=== PATIENT | male | born 1940 | race Caucasian/White ===

== ENCOUNTER → 2017-04-01 | Outpatient (CLI) | payer MEDICARE ==
[~2017-04-01] MED LIST: ACET-1757 PO; AMIO400T4 PO; AMLO10TA4 PO; AMLO5TAB2 PO; ASPI-515 PO; ATOR40TA PO; ATOR80TA75 PO; CARV6.2512 PO; CEFD300C37 PO; FURO-93 PO; FURO20TA3 PO; LISI-170 PO; LISI5TAB7 PO; LORA10TA3 PO; LOSA50TA6 PO; METO25TA35 PO; PHEN100C PO; POTA10TA11 PO; POTA20TA14 PO; SERT50TA5 PO; TAMS0.4C2 PO; dilantin PO
== END | disposition home or self-care (01) ==
LOC: CVU 12:25
PROVIDERS: ATTEND Internal Medicine Cardiovascular Disease
DX: I08.3 Combined rheumatic disorders of mitral, aortic and tricuspid valves (principal); I25.2 Old myocardial infarction; I37.1 Nonrheumatic pulmonary valve insufficiency; I51.7 Cardiomegaly; I67.1 Cerebral aneurysm, nonruptured; I10 Essential (primary) hypertension; I42.9 Cardiomyopathy, unspecified; Z95.5 Presence of coronary angioplasty implant and graft
CPT/HCPCS: 93306

== ENCOUNTER 2018-07-02 11:25 | Inpatient (IN) | payer MEDICARE ==
[~2018-07-02] VITALS: Ht 180.3 cm; Wt 107.2 kg
[~2018-07-02 11:25] MED LIST changes: -AMIO400T4 PO; +AMIO400T5 PO; +ATOR-2 PO; -ATOR80TA75 PO
[2018-07-02] MEDS ORDERED: SODIUM CHLORIDE FLUSH 10ML SYR IVF ONE (11:30)
[2018-07-02] MEDS ORDERED: ASPI-515 PO (11:38)
[2018-07-02] MEDS ORDERED: RIVA20TA PO (11:38)
[2018-07-02] MEDS ORDERED: SPIR25TA5 PO (11:38)
[2018-07-02] MEDS ORDERED: SACU1TAB PO (11:38)
[2018-07-02 12:08] LABS: BASOPHILS # (AUTO) 0.01 x10^3/uL (0-0.1); BASOPHILS % (AUTO) 0 % (0-1); EOSINOPHILS # (AUTO) 0.05 x10^3/uL (0-0.4); EOSINOPHILS % (AUTO) 1 % (1-7); LYMPHOCYTES # (AUTO) 0.48 x10^3/uL (1-3.4); LYMPHOCYTES % (AUTO) 6 % (22-44); MD NO; MEAN CORPUSCULAR HEMOGLOBIN 30.4 pg (27.5-34.5); MEAN CORPUSCULAR VOLUME 92.1 fL (81-97); MEAN PLATELET VOLUME 8.4 fL (7.4-10.4); MONOCYTES # (AUTO) 0.65 x10^3/uL (0.2-0.8); MONOCYTES % (AUTO) 8 % (2-9); NEUTROPHILS # (AUTO) 6.78 x10^3/uL (1.8-6.8); NEUTROPHILS % (AUTO) 85 % (42-75); PLATELET COUNT 158 x10^3/uL (130-400); RED BLOOD COUNT 3.94 x10^6/uL (4.38-5.82); RED CELL DISTRIBUTION WIDTH 16.5 % (9.4-14.8)
[2018-07-02 12:19] LABS: ALANINE AMINOTRANSFERASE 21 U/L (12-78); ALBUMIN 3.3 g/dL (3.4-5.0); ANION GAP 8 mmol/L (5-15); CALCIUM 8.6 mg/dL (8.5-10.1); CHLORIDE 106 mmol/L (98-107); CREATININE 2.08 mg/dL (0.7-1.3)
[2018-07-02 12:23] LABS: ALKALINE PHOSPHATASE 83 U/L (45-117); BILIRUBIN,TOTAL 1.1 mg/dL (0.2-1.0); TOTAL PROTEIN 6.9 g/dL (6.4-8.2); TROPONIN I < 0.015 ng/mL (0.000-0.045)
[2018-07-02 14:19] VITALS: BP 114/75
[2018-07-02] MEDS ORDERED: ONDANSETRON ODT 4 MG PO PRN (14:30)
[2018-07-02] MEDS ORDERED: HEPARIN 5,000 UNITS/ML, 1ML SQ SCH (14:30)
[2018-07-02] MEDS ORDERED: POLYETHYLENE GLYCOL 17 GM PACKET PO PRN (14:30)
[2018-07-02] MEDS ORDERED: FUROSEMIDE 40 MG/4 ML IV ONE (14:30)
[2018-07-02] MEDS ORDERED: GUAIFENESIN/DM 200-20MG, 10ML UDC PO PRN (14:30)
[2018-07-02] MEDS ORDERED: ONDANSETRON 2MG/ML, 2ML IVPush PRN (14:30)
[2018-07-02] MEDS ORDERED: LABETALOL 5MG/ML, 20ML IVPush PRN (14:30)
[2018-07-02 15:12] LABS: FREE T4 (FREE THYROXINE) 1.29 ng/dL (0.76-1.46)
[2018-07-02] MEDS: ALBUTEROL SULFATE 2.5 MG/3 ML NPPB PRN (16:45)
[2018-07-02 18:30] LABS: TROPONIN I < 0.015 ng/mL (0.000-0.045)
[2018-07-02 18:36] LABS: CREATININE,URINE RANDOM 26.4 mg/dL
[2018-07-02 19:47] VITALS: BP_SYST 85; BP_SYST 93; BP_DIAS 53; BP_DIAS 54
[2018-07-02] MEDS: METOPROLOL TARTRATE 25 MG TABLET PO SCH (21:25)
[2018-07-02] MEDS: FAMOTIDINE 20 MG/2 ML IVPush SCH (21:25)
[2018-07-02 21:26] VITALS: BP 105/70
[2018-07-02] MEDS: ATORVASTATIN 80 MG TABLET PO SCH (21:26)
[2018-07-02] MEDS: SPIRONOLACTONE 25 MG TABLET PO SCH (21:26)
[2018-07-03 00:01] LABS: TROPONIN I < 0.015 ng/mL (0.000-0.045)
[2018-07-03 00:56] VITALS: BP 119/72
[2018-07-03 05:42] LABS: ALBUMIN 2.9 g/dL (3.4-5.0); ANION GAP 5 mmol/L (5-15); CALCIUM 8.8 mg/dL (8.5-10.1); CHLORIDE 106 mmol/L (98-107)
[2018-07-03 05:45] LABS: BASOPHILS # (AUTO) 0.01 x10^3/uL (0-0.1); BASOPHILS % (AUTO) 0 % (0-1); EOSINOPHILS % (AUTO) 0 % (1-7); LYMPHOCYTES % (AUTO) 8 % (22-44); MD NO; MEAN CORPUSCULAR HEMOGLOBIN 30.1 pg (27.5-34.5); MEAN CORPUSCULAR VOLUME 91.5 fL (81-97); MEAN PLATELET VOLUME 8.3 fL (7.4-10.4); MONOCYTES # (AUTO) 0.23 x10^3/uL (0.2-0.8); MONOCYTES % (AUTO) 5 % (2-9); NEUTROPHILS # (AUTO) 4.47 x10^3/uL (1.8-6.8); NEUTROPHILS % (AUTO) 88 % (42-75); PLATELET COUNT 168 x10^3/uL (130-400); RED BLOOD COUNT 3.86 x10^6/uL (4.38-5.82); RED CELL DISTRIBUTION WIDTH 16.2 % (9.4-14.8)
[2018-07-03 05:52] LABS: ALANINE AMINOTRANSFERASE 19 U/L (12-78); ALKALINE PHOSPHATASE 76 U/L (45-117); BILIRUBIN,TOTAL 1.3 mg/dL (0.2-1.0); CREATININE 1.95 mg/dL (0.7-1.3); THYROID STIMULATING HORMONE 0.594 mIU/L (0.358-3.740); TOTAL PROTEIN 6.8 g/dL (6.4-8.2)
[2018-07-03 07:08] VITALS: BP 99/65
[2018-07-03] MEDS ORDERED: FUROSEMIDE 40 MG/4 ML IV SCH (08:30)
[2018-07-03] MEDS ORDERED: RIVAROXABAN 20 MG TABLET PO SCH (09:00)
[2018-07-03] MEDS: TAMSULOSIN 0.4 MG CAP.ER.24H PO SCH (09:46)
[2018-07-03] MEDS: SERTRALINE 50MG TABLET PO SCH (09:46)
[2018-07-03] MEDS: AMIODARONE 200 MG TABLET PO SCH (09:46)
[2018-07-03] MEDS: SENNA/DOCUSATE TABLET PO SCH (09:46)
[2018-07-03] MEDS: FAMOTIDINE 20 MG/2 ML IVPush SCH ×2 (09:46→20:43)
[2018-07-03] MEDS: METOPROLOL TARTRATE 25 MG TABLET PO SCH ×2 (09:46→20:42)
[2018-07-03] MEDS: SPIRONOLACTONE 25 MG TABLET PO SCH ×2 (09:47→20:42)
[2018-07-03 14:56] VITALS: BP 89/68
[2018-07-03 19:12] VITALS: BP 125/75
[2018-07-03] MEDS: ATORVASTATIN 80 MG TABLET PO SCH (20:42)
[2018-07-04] MEDS: ALBUTEROL SULFATE 2.5 MG/3 ML NPPB PRN ×3 (02:36→20:44)
[2018-07-04 02:55] VITALS: BP 109/70
[2018-07-04 05:35] LABS: BASOPHILS # (AUTO) 0.01 x10^3/uL (0-0.1); BASOPHILS % (AUTO) 0 % (0-1); EOSINOPHILS # (AUTO) 0.01 x10^3/uL (0-0.4); EOSINOPHILS % (AUTO) 0 % (1-7); LYMPHOCYTES # (AUTO) 0.77 x10^3/uL (1-3.4); LYMPHOCYTES % (AUTO) 8 % (22-44); MD NO; MEAN CORPUSCULAR HEMOGLOBIN 30.4 pg (27.5-34.5); MEAN CORPUSCULAR HGB CONC 33.1 g/dL (33.2-36.2); MEAN CORPUSCULAR VOLUME 91.9 fL (81-97); MEAN PLATELET VOLUME 8.8 fL (7.4-10.4); MONOCYTES # (AUTO) 1.06 x10^3/uL (0.2-0.8); MONOCYTES % (AUTO) 11 % (2-9); NEUTROPHILS # (AUTO) 8.04 x10^3/uL (1.8-6.8); NEUTROPHILS % (AUTO) 81 % (42-75); PLATELET COUNT 183 x10^3/uL (130-400); RED CELL DISTRIBUTION WIDTH 17.1 % (9.4-14.8)
[2018-07-04 05:40] LABS: ANION GAP 4 mmol/L (5-15); CALCIUM 8.8 mg/dL (8.5-10.1); CHLORIDE 106 mmol/L (98-107)
[2018-07-04 05:45] LABS: CREATININE 2.09 mg/dL (0.7-1.3)
[2018-07-04 06:53] VITALS: BP 99/58
[2018-07-04] MEDS: AMIODARONE 200 MG TABLET PO SCH (08:46)
[2018-07-04] MEDS: TAMSULOSIN 0.4 MG CAP.ER.24H PO SCH (08:46)
[2018-07-04] MEDS: RIVAROXABAN 15 MG TABLET PO SCH (08:47)
[2018-07-04] MEDS: SENNA/DOCUSATE TABLET PO SCH (08:47)
[2018-07-04] MEDS: METOPROLOL TARTRATE 25 MG TABLET PO SCH ×2 (08:47→20:30)
[2018-07-04] MEDS: SERTRALINE 50MG TABLET PO SCH (08:47)
[2018-07-04] MEDS: SPIRONOLACTONE 25 MG TABLET PO SCH ×2 (08:49→20:28)
[2018-07-04] MEDS ORDERED: FUROSEMIDE 40 MG/4 ML IV ONE (09:00)
[2018-07-04] MEDS ORDERED: FUROSEMIDE 20 MG/2 ML IV ONE (11:27)
[2018-07-04 13:35] VITALS: BP 105/69
[2018-07-04] MEDS ORDERED: FUROSEMIDE 20 MG/2 ML IV SCH (17:00)
[2018-07-04 18:55] VITALS: BP 101/65
[2018-07-04] MEDS: FAMOTIDINE 20 MG/2 ML IVPush SCH (20:28)
[2018-07-04] MEDS: ATORVASTATIN 80 MG TABLET PO SCH (20:29)
[2018-07-05 02:29] VITALS: BP 108/65
[2018-07-05 05:44] LABS: BASOPHILS # (AUTO) 0.01 x10^3/uL (0-0.1); BASOPHILS % (AUTO) 0 % (0-1); EOSINOPHILS % (AUTO) 0 % (1-7); LYMPHOCYTES # (AUTO) 0.73 x10^3/uL (1-3.4); LYMPHOCYTES % (AUTO) 9 % (22-44); MD NO; MEAN CORPUSCULAR HGB CONC 32.8 g/dL (33.2-36.2); MEAN CORPUSCULAR VOLUME 91.4 fL (81-97); MEAN PLATELET VOLUME 8.7 fL (7.4-10.4); MONOCYTES # (AUTO) 0.63 x10^3/uL (0.2-0.8); MONOCYTES % (AUTO) 8 % (2-9); NEUTROPHILS # (AUTO) 6.58 x10^3/uL (1.8-6.8); NEUTROPHILS % (AUTO) 83 % (42-75); PLATELET COUNT 188 x10^3/uL (130-400); RED BLOOD COUNT 3.73 x10^6/uL (4.38-5.82); RED CELL DISTRIBUTION WIDTH 16.5 % (9.4-14.8)
[2018-07-05 05:47] LABS: ANION GAP 4 mmol/L (5-15); CALCIUM 8.4 mg/dL (8.5-10.1); CHLORIDE 105 mmol/L (98-107); CREATININE 1.97 mg/dL (0.7-1.3)
[2018-07-05 07:03] VITALS: BP 117/72
[2018-07-05] MEDS: ALBUTEROL SULFATE 2.5 MG/3 ML NPPB SCH ×4 (07:10→19:42)
[2018-07-05] MEDS: FUROSEMIDE 40 MG/4 ML IV SCH ×2 (08:41→17:12)
[2018-07-05] MEDS: SENNA/DOCUSATE TABLET PO SCH ×2 (08:41→08:47)
[2018-07-05] MEDS: METOPROLOL TARTRATE 25 MG TABLET PO SCH ×2 (08:42→22:17)
[2018-07-05] MEDS: RIVAROXABAN 15 MG TABLET PO SCH (08:42)
[2018-07-05] MEDS: SERTRALINE 50MG TABLET PO SCH (08:42)
[2018-07-05] MEDS: TAMSULOSIN 0.4 MG CAP.ER.24H PO SCH (08:42)
[2018-07-05] MEDS: AMIODARONE 200 MG TABLET PO SCH (08:42)
[2018-07-05] MEDS: SPIRONOLACTONE 25 MG TABLET PO SCH ×2 (08:42→22:17)
[2018-07-05 12:40] VITALS: BP 108/68
[2018-07-05] MEDS ORDERED: FUROSEMIDE 20 MG/2 ML IV SCH (17:00)
[2018-07-05 19:26] VITALS: BP 103/67
[2018-07-05] MEDS: ATORVASTATIN 80 MG TABLET PO SCH (22:17)
[2018-07-05] MEDS: FAMOTIDINE 20 MG/2 ML IVPush SCH (22:17)
[2018-07-06 03:24] VITALS: BP 115/73
[2018-07-06 05:48] LABS: BASOPHILS % (AUTO) 0 % (0-1); EOSINOPHILS # (AUTO) 0.01 x10^3/uL (0-0.4); EOSINOPHILS % (AUTO) 0 % (1-7); LYMPHOCYTES # (AUTO) 0.75 x10^3/uL (1-3.4); LYMPHOCYTES % (AUTO) 9 % (22-44); MD NO; MEAN CORPUSCULAR HEMOGLOBIN 30.4 pg (27.5-34.5); MEAN CORPUSCULAR HGB CONC 33.1 g/dL (33.2-36.2); MEAN CORPUSCULAR VOLUME 91.9 fL (81-97); MEAN PLATELET VOLUME 8.6 fL (7.4-10.4); MONOCYTES # (AUTO) 0.77 x10^3/uL (0.2-0.8); MONOCYTES % (AUTO) 9 % (2-9); NEUTROPHILS # (AUTO) 6.86 x10^3/uL (1.8-6.8); NEUTROPHILS % (AUTO) 82 % (42-75); PLATELET COUNT 190 x10^3/uL (130-400); RED BLOOD COUNT 3.76 x10^6/uL (4.38-5.82); RED CELL DISTRIBUTION WIDTH 16.1 % (9.4-14.8)
[2018-07-06 05:55] LABS: ALBUMIN 2.9 g/dL (3.4-5.0); ANION GAP 6 mmol/L (5-15); CALCIUM 8.5 mg/dL (8.5-10.1); CHLORIDE 105 mmol/L (98-107)
[2018-07-06 05:57] LABS: CREATININE 1.87 mg/dL (0.7-1.3)
[2018-07-06] MEDS: ALBUTEROL SULFATE 2.5 MG/3 ML NPPB SCH ×4 (06:30→19:09)
[2018-07-06 07:21] VITALS: BP 113/75
[2018-07-06] MEDS: FUROSEMIDE 40 MG/4 ML IV SCH ×3 (09:14→21:04)
[2018-07-06] MEDS: SERTRALINE 50MG TABLET PO SCH (09:16)
[2018-07-06] MEDS: SENNA/DOCUSATE TABLET PO SCH (09:16)
[2018-07-06] MEDS: SPIRONOLACTONE 25 MG TABLET PO SCH ×2 (09:16→21:03)
[2018-07-06] MEDS: AMIODARONE 200 MG TABLET PO SCH (09:16)
[2018-07-06] MEDS: RIVAROXABAN 15 MG TABLET PO SCH (09:17)
[2018-07-06] MEDS: METOPROLOL TARTRATE 25 MG TABLET PO SCH (09:17)
[2018-07-06] MEDS: TAMSULOSIN 0.4 MG CAP.ER.24H PO SCH (09:28)
[2018-07-06 20:43] VITALS: BP 103/70
[2018-07-06] MEDS: ATORVASTATIN 80 MG TABLET PO SCH (21:03)
[2018-07-07 01:21] VITALS: BP 118/79
[2018-07-07] MEDS: FAMOTIDINE 20 MG/2 ML IVPush SCH ×2 (01:28→21:09)
[2018-07-07] MEDS: METOPROLOL TARTRATE 25 MG TABLET PO SCH ×2 (01:28→12:39)
[2018-07-07 05:38] LABS: ALBUMIN 2.9 g/dL (3.4-5.0); ANION GAP 8 mmol/L (5-15); CALCIUM 8.3 mg/dL (8.5-10.1); CHLORIDE 103 mmol/L (98-107)
[2018-07-07] MEDS: ALBUTEROL SULFATE 2.5 MG/3 ML NPPB SCH ×4 (07:00→19:40)
[2018-07-07] MEDS: TAMSULOSIN 0.4 MG CAP.ER.24H PO SCH (08:42)
[2018-07-07] MEDS: SENNA/DOCUSATE TABLET PO SCH ×2 (08:42→08:45)
[2018-07-07] MEDS: RIVAROXABAN 15 MG TABLET PO SCH (08:42)
[2018-07-07] MEDS: SERTRALINE 50MG TABLET PO SCH (08:42)
[2018-07-07] MEDS: SPIRONOLACTONE 25 MG TABLET PO SCH ×2 (08:43→20:51)
[2018-07-07] MEDS: AMIODARONE 200 MG TABLET PO SCH (08:43)
[2018-07-07] MEDS: FUROSEMIDE 40 MG/4 ML IV SCH ×3 (08:43→20:51)
[2018-07-07 08:46] VITALS: BP 118/76
[2018-07-07 12:38] VITALS: BP 105/66
[2018-07-07 19:32] VITALS: BP 101/67
[2018-07-07] MEDS: ATORVASTATIN 80 MG TABLET PO SCH (20:51)
[2018-07-08 01:07] VITALS: BP 113/68
[2018-07-08] MEDS: METOPROLOL TARTRATE 25 MG TABLET PO SCH ×2 (01:09→08:54)
[2018-07-08 05:59] LABS: ALBUMIN 2.9 g/dL (3.4-5.0); ANION GAP 6 mmol/L (5-15); CALCIUM 8.6 mg/dL (8.5-10.1); CHLORIDE 101 mmol/L (98-107); CREATININE 2.34 mg/dL (0.7-1.3)
[2018-07-08 06:02] LABS: BASOPHILS # (AUTO) 0.01 x10^3/uL (0-0.1); BASOPHILS % (AUTO) 0 % (0-1); EOSINOPHILS % (AUTO) 0 % (1-7); LYMPHOCYTES # (AUTO) 1.03 x10^3/uL (1-3.4); LYMPHOCYTES % (AUTO) 10 % (22-44); MD NO; MEAN CORPUSCULAR HEMOGLOBIN 29.9 pg (27.5-34.5); MEAN CORPUSCULAR HGB CONC 32.6 g/dL (33.2-36.2); MEAN CORPUSCULAR VOLUME 91.7 fL (81-97); MEAN PLATELET VOLUME 8.7 fL (7.4-10.4); MONOCYTES # (AUTO) 0.88 x10^3/uL (0.2-0.8); MONOCYTES % (AUTO) 9 % (2-9); NEUTROPHILS # (AUTO) 7.92 x10^3/uL (1.8-6.8); NEUTROPHILS % (AUTO) 81 % (42-75); PLATELET COUNT 216 x10^3/uL (130-400); RED BLOOD COUNT 4.07 x10^6/uL (4.38-5.82); RED CELL DISTRIBUTION WIDTH 16.9 % (9.4-14.8)
[2018-07-08 07:33] VITALS: BP 99/61
[2018-07-08] MEDS: ALBUTEROL SULFATE 2.5 MG/3 ML NPPB SCH (08:15)
[2018-07-08] MEDS: SENNA/DOCUSATE TABLET PO SCH (08:53)
[2018-07-08] MEDS: TAMSULOSIN 0.4 MG CAP.ER.24H PO SCH (08:53)
[2018-07-08] MEDS: SERTRALINE 50MG TABLET PO SCH (08:53)
[2018-07-08] MEDS: FUROSEMIDE 40 MG/4 ML IV SCH (08:54)
[2018-07-08] MEDS: AMIODARONE 200 MG TABLET PO SCH (08:54)
[2018-07-08] MEDS: SPIRONOLACTONE 25 MG TABLET PO SCH (08:54)
[2018-07-08] MEDS: RIVAROXABAN 15 MG TABLET PO SCH (08:54)
[2018-07-08] MEDS ORDERED: METO-93 PO (10:47)
[2018-07-08] MEDS ORDERED: RIVA15TA PO (14:14)
== END 2018-07-08 10:57 | disposition home or self-care (01) | DRG 291 ==
LOC: ED 13:18 → EDIP 13:19 → ED 13:27 → 5SO 14:08 → DCLOUNGE 07-08 10:13
PROVIDERS: ADMIT Internal Medicine; ATTEND Internal Medicine
DX: I13.0 Hypertensive heart and chronic kidney disease with heart failure and stage 1 through stage 4 chronic kidney disease, or unspecified chronic kidney disease (principal); J96.01 Acute respiratory failure with hypoxia; I50.23 Acute on chronic systolic (congestive) heart failure; D68.69 Other thrombophilia; N18.4 Chronic kidney disease, stage 4 (severe); N17.9 Acute kidney failure, unspecified; R47.01 Aphasia; G40.909 Epilepsy, unspecified, not intractable, without status epilepticus; E78.5 Hyperlipidemia, unspecified; D64.9 Anemia, unspecified; I50.9 Heart failure, unspecified; I48.91 Unspecified atrial fibrillation; Z96.659 Presence of unspecified artificial knee joint; I67.1 Cerebral aneurysm, nonruptured; E83.39 Other disorders of phosphorus metabolism; R07.2 Precordial pain; J44.9 Chronic obstructive pulmonary disease, unspecified; N28.1 Cyst of kidney, acquired; N40.0 Benign prostatic hyperplasia without lower urinary tract symptoms; Z79.01 Long term (current) use of anticoagulants; Z86.73 Personal history of transient ischemic attack (TIA), and cerebral infarction without residual deficits; Z87.442 Personal history of urinary calculi; Z87.891 Personal history of nicotine dependence; Z95.810 Presence of automatic (implantable) cardiac defibrillator; Z88.5 Allergy status to narcotic agent; Z88.8 Allergy status to other drugs, medicaments and biological substances
CPT/HCPCS: 36415; 71045; 76770; 80048; 80053; 82040; 82570; 83605; 83735; 83880; 84100; 84300; 84439; 84443; 84484; 85025; 87040; 93005; 94640; 99285; C8929; J1940; J7613; J7512; S0028